=== PATIENT | male | born 1975 | race Caucasian/White ===

== ENCOUNTER 2019-10-08 15:28 | Emergency (ER) | payer SELFPAY ==
[~2019-10-08] VITALS: Ht 167.6 cm; Wt 190.0 kg
[2019-10-08 17:12] VITALS: BP 131/81
== END 2019-10-08 17:13 | disposition home or self-care (01) ==
LOC: ER 15:28
DX: M67.431 Ganglion, right wrist (principal)
CPT/HCPCS: 29125; 99283